=== PATIENT | female | born 1995 | race Caucasian/White ===

== ENCOUNTER 2019-04-04 22:27 | Emergency (ER) | payer MEDICAID ==
[~2019-04-04] VITALS: Ht 152.4 cm; Wt 53.5 kg
[2019-04-04 22:49] VITALS: BP 110/73
--- NOTE | 2019-04-04 23:00 | NUR ---
PHLEB AT BEDSIDE FOR LAB DRAW
[2019-04-04] MEDS ORDERED: MECLIZINE HCL 12.5 MG TABLET ONE (23:06)
[2019-04-04 23:11] LABS: BASOPHILS % (AUTO) 0.4 % (0.0-2.0); EOSINOPHILS % (AUTO) 0.5 % (0.0-6.0); HEMATOCRIT 37 % (33-45); HEMOGLOBIN 12.5 g/dL (11.5-14.8); LYMPHOCYTES # (AUTO) 1.9 /CMM (0.8-4.8); LYMPHOCYTES % (AUTO) 22.3 % (20.0-44.0); MEAN CORPUSCULAR HGB CONC 34 g/dl (31.0-36.0); MEAN CORPUSCULAR VOLUME 88 fL (82-100); MONOCYTES # (AUTO) 0.5 /CMM (0.1-1.30); MONOCYTES % (AUTO) 6.5 % (2.0-12.0); NEUTROPHILS # (AUTO) 5.8 /CMM (1.8-8.9); NEUTROPHILS % (AUTO) 70.3 % (43.0-81.0); PLATELET COUNT (AUTO) 235 /CMM (150-450); RED BLOOD CELL COUNT(AUTO) 4.19 MIL/uL (4.0-5.2); WHITE BLOOD COUNT (AUTO) 8.3 K/uL (4.3-11.0)
[2019-04-04 23:17] LABS: CALCIUM, SERUM 9.2 mg/dL (8.5-10.1); CREATININE 0.7 mg/dL (0.6-1.3); POTASSIUM 3.8 mmol/L (3.5-5.1)
[2019-04-04] MEDS ORDERED: MECLIZINE HCL 12.5 MG TABLET PO ONE (23:30)
== END 2019-04-04 23:58 | disposition home or self-care (01) ==
LOC: ER 22:30
DX: R20.2 Paresthesia of skin (principal); R42 Dizziness and giddiness; R51 Headache
CPT/HCPCS: 36415; 80048; 85025; 99283; J8597